=== PATIENT | female | born 1945 | race Caucasian/White ===

== ENCOUNTER 2016-10-09 17:45 | Observation (INO) | payer MEDICARE, OTHER ==
--- NOTE | ~2016-10-09 | CN ---
Consultation Report [facility] [address] [place]. [address] NAME: EMY DANIEL : 41 STATUS : ADM Tahir PAT#: [id number] AGE: 71 ADM/REG DATE : 10/09/16 MR#: [id number] REPORT SERV DATE: 10/10/16 DICTATED BY: KAYODE BARRERA DATE: 10/10/16 REPORT STATUS : Draft TRANSCRIBED BY: MODL DATE: 10/10/16 CONSULTATION DATE OF CONSULTATION: Emy Daniel is a 71-year-old female, who enters through the emergency room with chest discomfort. CVD physician is Dr. Kayode Barrera. HISTORY OF PRESENT ILLNESS: Mrs. Emy Daniel has known coronary disease and recently has been having chest pain and shortness of breath with exercising. They initially thought this was asthma, and she was given a bronchodilator, but yesterday with regular exertion, she had chest discomfort that lasted from half an hour to an hour. The chest pain is in the center of her chest that radiates to her back and occasional left arm. She is short of breath with this. She came to the emergency room and was admitted. REVIEW OF SYSTEMS: Negative for PND, palpitations, syncope, or presyncope, nausea, vomiting, change in bowel habit, rash, petechiae, or bleeding disorder. PAST MEDICAL HISTORY: 1. Hyperlipidemia, currently on atorvastatin 40 mg. 2. Coronary artery disease, status post drug-eluting stent 12/08. 3. Bipolar disorder. 4. 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 5. Hypothyroidism on Synthroid replacement. 6. PFO with [id number] shunt. SOCIAL HISTORY: She is with good family support. She does not smoke. She does not drink. FAMILY HISTORY: Negative for early heart disease. PHYSICAL EXAMINATION: VITAL SIGNS: Blood pressure is 139/66, pulse is 64. GENERAL: She is afebrile, resting comfortably. EYES: PERRLA. LUNGS: No labored use of accessory muscles. Without rales or wheezes. COR: PMI is not displaced. No thrills or heaves. NL S1 and S2. No S3, murmur, click or rub. PULSES: Carotids without bruits. ABDOMEN: +BS, nontender. EXTREMITIES: No cyanosis, clubbing or edema. SKIN: No petechiae. Consultation Report [facility] [address] [place]. [address] NAME: EMY DANIEL : 41 STATUS : ADM Tahir PAT#: [id number] AGE: 71 ADM/REG DATE : 10/09/16 MR#: [id number] REPORT SERV DATE: 10/10/16 DICTATED BY: KAYODE BARRERA DATE: 10/10/16 REPORT STATUS : Draft TRANSCRIBED BY: LAW DATE: 10/10/16 NEUROLOGIC: Alert and oriented. Does not appear anxious or depressed. DIAGNOSTIC STUDIES: EKG shows sinus rhythm with interventricular conduction with left bundle branch block. ASSESSMENT: At this time, she has known coronary disease, presents with an anginal pattern. She is now scheduled for cardiac catheterization. The risk and benefits of the catheterization have been discussed with her and she understands and agrees to proceed. KENNY/LAW Kayode Barrera M.D. / [id number] CC: Lissa Garcia M.D.
[~2016-10-09 17:45] MED LIST: ACET500CAP PO; ASAB PO; BRILINTA90 MG; BRILINTA90 MG PO; CALTRA600D PO; CELEBREX2 PO; CENTRUM TAB1 TAB PO; CIP2 PO; COREG3 PO; DEXTROAMPHET OR; DEXTROAMPHET PO; ESKALITH PO; ESTRACE VAG0.1 MG/GM V; ESTRACE VAGIN42.5 GM V; FLONASE NAS; HALF81 PO; I10 PO; LAMICTAL ODT200 MG PO; LAMICTAL200 MG PO; LINZESS 145 M145 MCG PO; LIPITOR40 PO; LUNESTA1 MG PO; MELA3 PO; MELATONIN5 M1 PO; MIRALAXPKT PO; NASACORTAQ NAS; NEXIUM40 PO; NITROQUICK0.4 MG SL; NITROSTAT0.4 MG SL; NORCO1 TA1 PO; OS500+D PO; PRIN5 PO; SENTAB PO; SEROQUEL25 PO; SINGULAIR1 PO; SYN075 PO; SYNTHROID PO; THERGRANM PO; TOPXL25 PO; VALTREX1 GM PO; VITAMIN C PO; VITAMIN D PO; VITAMIN D31000 UNIT PO; VITC500 PO; X5 PO; XANAX1 MG PO; ZANTAC150 MG PO; ZYRTEC ALLGY10 MG PO
[2016-10-09 18:06] LABS: BASOPHILS 0.3 %; BASOPHILS ABSOLUTE 0.02 10/3/uL (0.0-0.16); EOSINOPHILS 2.8 %; EOSINOPHILS ABSOLUTE 0.18 10/3/uL (0.0-0.53); ER CBC TAT 0 Hrs 05 Mins; HEMATOCRIT 38.9 % (36.0-48.0); LYMPHOCYTES 24.8 %; LYMPHOCYTES ABSOLUTE 1.59 10/3/uL (0.67-4.30); MEAN CORPUS HGB CONC 33.4 g/dL (32.0-36.0); MEAN CORPUSCULAR HEMOGLOB 33.6 pg (26.0-34.0); MEAN CORPUSCULAR VOLUME 100.5 fL (80-100); MEAN PLATELET VOLUME 10.2 fL (9.2-13.0); MONOCYTES 6.9 %; MONOCYTES ABSOLUTE 0.44 10/3/uL (0.21-1.20); NEUTROPHILS 65.2 %; NEUTROPHILS ABSOLUTE 4.17 10/3/uL (2.02-8.40); PLATELET COUNT 150 10/3/uL (150-400); RBC DISTRIBUTION WIDTH 13.6 % (12.0-16.0); RED CELL COUNT 3.87 10/6/uL (4.0-5.6); WHITE BLOOD CELLS 6.4 10/3/uL (4.5-10.5)
[2016-10-09 18:12] LABS: MANUAL DIFF NO %
[2016-10-09 18:18] LABS: PROTIME (NOT ORD) 13.2 SEC (12.0-14.5)
[2016-10-09 18:22] LABS: ALBUMIN 3.7 G/DL (3.5-5.0); ALKALINE PHOSPHATASE 117 U/L (45-117); BUN (BLOOD UREA NITROGEN) 9 MG/DL (6-23); CALCIUM, SERUM 8.9 MG/DL (8.5-10.4); CHLORIDE, SERUM 105 MMOL/L (96-112); CO2 (CARBON DIOXIDE) 29 MMOL/L (24-34); CREATININE 0.98 MG/DL (0.55-1.02); GFR AFRICAN AMERICAN 66 ML/MIN (>=60); GFR NON AFRICAN AMERICAN 57 ML/MIN (>=60); GLOBULIN 3.7 G/DL (2.5-4.1); GLUCOSE, SERUM 102 MG/DL (60-99); POTASSIUM, SERUM 4.7 MMOL/L (3.5-5.3); SGOT(AST) 21 U/L (5-40); SGPT(ALT) 23 U/L (5-65); SODIUM, SERUM 142 MMOL/L (135-148); TOTAL BILIRUBIN 0.5 MG/DL (0-1.2); TOTAL PROTEIN 7.4 G/DL (6.0-8.5); TROPONIN I <0.02 NG/ML (<0.05)
[2016-10-09] MEDS ORDERED: LEVOTHYROXIN75 MCG PO (19:47)
[2016-10-09] MEDS ORDERED: LAMICTAL200 MG PO (19:47)
[2016-10-09] MEDS ORDERED: LINZESS 145 M145 MCG PO (19:48)
[2016-10-09] MEDS ORDERED: SINGULAIR1 PO (19:48)
[2016-10-09] MEDS ORDERED: ASAB PO (19:49)
[2016-10-09] MEDS ORDERED: DEXTROAMPHET PO ×2 (19:49→19:53)
[2016-10-09] MEDS ORDERED: BRILINTA90 MG PO (19:49)
[2016-10-09] MEDS ORDERED: CENTRUM PO (19:50)
[2016-10-09] MEDS ORDERED: VITAMIN D2000 UNIT PO (19:50)
[2016-10-09] MEDS ORDERED: ZANTAC 150 PO (19:50)
[2016-10-09] MEDS ORDERED: TOPXL25 PO (19:50)
[2016-10-09] MEDS ORDERED: ZYRTEC ALLGY10 MG PO (19:51)
[2016-10-09] MEDS ORDERED: MELA3 PO (19:51)
[2016-10-09] MEDS ORDERED: ESKALITH PO (19:51)
[2016-10-09] MEDS ORDERED: NITROSTAT0.4 MG SL (19:52)
[2016-10-09] MEDS ORDERED: LIPITOR40 PO (19:52)
[2016-10-09] MEDS ORDERED: PRIN5 PO (19:52)
[2016-10-09] MEDS ORDERED: X5 PO (19:52)
[2016-10-09] MEDS ORDERED: SEROQUEL25 PO (19:52)
[2016-10-09] MEDS ORDERED: ESTRACE VAGIN42.5 GM V (19:54)
[2016-10-09] MEDS ORDERED: CONSTULOSE PO (20:16)
[2016-10-09] MEDS ORDERED: D.O.S.100 MG PO (20:16)
[2016-10-10 05:52] LABS: BASOPHILS 0.2 %; BASOPHILS ABSOLUTE 0.01 10/3/uL (0.0-0.16); EOSINOPHILS 3.6 %; EOSINOPHILS ABSOLUTE 0.17 10/3/uL (0.0-0.53); HEMOGLOBIN 11.4 g/dL (12.0-16.0); LYMPHOCYTES 27.7 %; LYMPHOCYTES ABSOLUTE 1.32 10/3/uL (0.67-4.30); MEAN CORPUS HGB CONC 33.2 g/dL (32.0-36.0); MEAN CORPUSCULAR HEMOGLOB 32.9 pg (26.0-34.0); MEAN CORPUSCULAR VOLUME 99.1 fL (80-100); MEAN PLATELET VOLUME 10.3 fL (9.2-13.0); MONOCYTES 8.4 %; NEUTROPHILS 60.1 %; NEUTROPHILS ABSOLUTE 2.87 10/3/uL (2.02-8.40); PLATELET COUNT 143 10/3/uL (150-400); RBC DISTRIBUTION WIDTH 13.4 % (12.0-16.0); RED CELL COUNT 3.46 10/6/uL (4.0-5.6); WHITE BLOOD CELLS 4.8 10/3/uL (4.5-10.5)
[2016-10-10 06:00] LABS: HEMATOCRIT 34.3 % (36.0-48.0); MANUAL DIFF NO %
[2016-10-10 06:07] LABS: CHOLESTEROL 138 MG/DL (< 200); HDL CHOLESTEROL 68 MG/DL (> 49); LDL CHOLESTEROL 55 MG/DL (< 130); NON-HDL CHOLESTEROL 70 MG/DL (< 160); SGPT(ALT) 20 U/L (5-65); TRIGLYCERIDE 76 MG/DL (< 150)
[2016-10-10 10:11] LABS: BUN (BLOOD UREA NITROGEN) 10 MG/DL (6-23); CALCIUM, SERUM 9.2 MG/DL (8.5-10.4); CHLORIDE, SERUM 109 MMOL/L (96-112); GFR AFRICAN AMERICAN 74 ML/MIN (>=60); GFR NON AFRICAN AMERICAN 63 ML/MIN (>=60); GLUCOSE, SERUM 109 MG/DL (60-99); POTASSIUM, SERUM 4.1 MMOL/L (3.5-5.3); SODIUM, SERUM 144 MMOL/L (135-148)
[2016-10-10 10:12] LABS: CO2 (CARBON DIOXIDE) 24 MMOL/L (24-34)
[2016-10-10 10:34] LABS: INTERNATIONAL NORMAL RATI 1.1 UNITS (-); PROTIME (NOT ORD) 14.3 SEC (12.0-14.5)
[2016-10-10 14:38] LABS: ASCORBIC ACID (UR NOT ORDER) NEG (NEG); BILIRUBIN, URINE NEGATIVE (NEG); KETONE, URINE NEGATIVE (NEG); LEUKOCYTE ESTERASE(NOT OR LARGE (NEG); WBC (NOT ORDERED) (RFLEX) 19 (0-5)
== END 2016-10-10 20:56 | disposition home or self-care (01) ==
LOC: ER 17:45 → CDU1 19:25 → CDU2 20:46
PROVIDERS: Emergency Medicine; Internal Medicine Cardiovascular Disease
DX: I25.110 Atherosclerotic heart disease of native coronary artery with unstable angina pectoris (principal); I25.2 Old myocardial infarction; E78.5 Hyperlipidemia, unspecified; F31.9 Bipolar disorder, unspecified; E03.9 Hypothyroidism, unspecified; Z86.73 Personal history of transient ischemic attack (TIA), and cerebral infarction without residual deficits; Z88.0 Allergy status to penicillin; Z88.8 Allergy status to other drugs, medicaments and biological substances
CPT/HCPCS: 71010; 80048; 80053; 80061; 81001; 82962; 83735; 84460; 84484; 85025; 85610; 85730; 87086; 93005; 93458; 99285; A9270-GY; C1769; C1887; C1894; G0378; J2250; J3010; Q9967